=== PATIENT | male | born 1990 | race Two or more races ===

== ENCOUNTER 2023-10-11 13:14 | Emergency (ER) | payer MEDICAID ==
[~2023-10-11] VITALS: Ht 160 cm; Wt 100.0 kg
[2023-10-11 13:25] VITALS: TEMP 98
[2023-10-11 15:21] LABS: COVID AG,FIA SOURCE NASAL SWAB
[2023-10-11] MEDS: PredniSONE 20 MG TABLET PO ONE (15:21)
[2023-10-11] MEDS: ValACYclovir HCL 500 MG TABLET PO ONE (15:21)
[2023-10-11 15:41] LABS: INFLUENZA TYPE A NEGATIVE FOR TYPE A (NEGATIVE); INFLUENZA TYPE B NEGATIVE FOR TYPE B (NEGATIVE)
[2023-10-11 15:42] LABS: SARS-COV2 (COVID) ANTIGEN,FIA Negative (Negative)
[2023-10-11 15:46] LABS: GLUCOMETER DEV NAME(LOC) ER.6; GLUCOSE,POINT OF CARE 101 MG/DL (70-110)
[2023-10-11] MEDS ORDERED: VALA500T42 PO (16:14)
[2023-10-11] MEDS ORDERED: PRED-554 PO (16:14)
[2023-10-11] MEDS ORDERED: LANO3.5O OP (16:14)
[2023-10-11 16:34] VITALS: BP 148/88; PULSE 90; RESP 18
== END 2023-10-11 16:43 | disposition home or self-care (01) ==
LOC: EMS 13:20
DX: G51.0 Bell's palsy (principal); Z20.822 Contact with and (suspected) exposure to COVID-19
CPT/HCPCS: 99283; 87426; 82962; 87804; J7512